=== PATIENT | female | born 2000 | race Caucasian/White ===

== ENCOUNTER 2021-11-07 14:49 | Emergency (ER) | payer OTHER, SELFPAY ==
[~2021-11-07] VITALS: Ht 162.6 cm; Wt 77.1 kg
--- NOTE | 2021-11-07 14:51 | NUR ---
Patient to ER bed 05 to gown for evaluation. Side rails up.
[2021-11-07 14:52] VITALS: BP_SYST 142
--- NOTE | 2021-11-07 15:00 | NUR ---
IV 20g inserted in right AC using aseptic technique. No infiltration noted. Saline lock. Blood drawn and sent to lab. Pt is A&Ox4. Has pain in RLQ 7/10 non-radiating. Ambulatory with steady gait. Significant other at bedside. Bed in lowest position.
--- NOTE | 2021-11-07 15:11 | NUR ---
ER physician at bedside.
[2021-11-07] MEDS ORDERED: NACL 0.9% 1,000 ML IV ONE (15:15)
[2021-11-07] MEDS ORDERED: KETOROLAC TROMETHAMINE 30 MG VIAL IVP ONE (15:15)
--- NOTE | 2021-11-07 15:17 | NUR ---
Urine dip completed and results shown to ER physician.
--- NOTE | 2021-11-07 15:27 | NUR ---
Pt currently at CT.
--- NOTE | 2021-11-07 15:39 | NUR ---
Pt back from CT and prescribed medications have been given. 0.9 NS running bolus and Ketorolac given IV push. Pt has no c/o.
[2021-11-07 16:08] LABS: BASOPHILS % (AUTO) 0.4 % (0.0-2.0); EOSINOPHILS # (AUTO) 0.2 K/uL (0.0-0.4); EOSINOPHILS % (AUTO) 1.6 % (0.0-4.0); HEMATOCRIT 39.1 % (36-48); LYMPHOCYTES # (AUTO) 4.3 K/uL (1.0-5.5); LYMPHOCYTES % (AUTO) 39.2 % (20.5-51.5); MEAN CORPUSCULAR HEMOGLOBIN 28 pg (27-31); MEAN CORPUSCULAR HGB CONC 33 % (32-36); MEAN CORPUSCULAR VOLUME 85 fL (79.0-98.0); MONOCYTES # (AUTO) 0.6 K/uL (0.0-1.0); MONOCYTES % (AUTO) 5.4 % (1.7-9.3); NEUTROPHILS # (AUTO) 5.9 K/uL (1.8-7.7); NEUTROPHILS % (AUTO) 53.4 % (40.0-70.0); PLATELET COUNT (AUTO) 406 K/uL (130-430); RED BLOOD CELL COUNT(AUTO) 4.59 MIL/uL (4.2-6.2); RED CELL DISTRIBUTION WIDTH 14.3 % (9.0-15.0)
[2021-11-07 16:22] LABS: CALCIUM 8.9 mg/dL (8.4-11.0); CREATININE 0.65 mg/dL (0.55-1.30); POTASSIUM 3.6 mmol/L (3.5-5.1)
[2021-11-07 16:28] LABS: ALBUMIN 3.6 g/dL (3.4-4.8); TOTAL BILIRUBIN 0.3 mg/dL (0.0-1.0)
[2021-11-07] MEDS ORDERED: ONDA8TAB60 PO (17:11)
[2021-11-07] MEDS ORDERED: HYDR-3917 PO (17:11)
[2021-11-07] MEDS ORDERED: IBUP-1971 PO (17:11)
[2021-11-07 17:20] VITALS: BP_SYST 128
--- NOTE | 2021-11-07 17:21 | NUR ---
Patient given written and verbal discharge instructions and verbalizes understanding. ER MD discussed with patient the results and treatment provided. Patient in stable condition. ID arm band removed. IV catheter removed intact and dressing applied, no active bleeding. Rx of Ibuprofen, Jasper, and Zofran given. Patient educated on pain management and to follow up with PMD. Pain Scale . Opportunity for questions provided and answered. Medication side effect fact sheet provided.
== END 2021-11-07 17:20 | disposition home or self-care (01) ==
LOC: SED 14:49
DX: R10.31 Right lower quadrant pain (principal)
CPT/HCPCS: 36415; 74176; 76376; 80053; 81002; 83690; 85025; 96361; 96374; 99284; J1885; J7030